=== PATIENT | female | born 1960 | race African-American/Black ===

== ENCOUNTER 2023-07-30 11:57 | Emergency (ER) | payer OTHER ==
[2023-07-30 12:02] VITALS: BMI 24.0
[2023-07-30 13:08] LABS: BASO % 0.8 % (0-2.0); EOS % 1.8 % (0-4.5); HEMATOCRIT 38.5 % (32.4-45.2); HEMOGLOBIN 12.8 GM/dL (10.7-15.3); LYMPH % 28.8 % (8-40); MCH 31.2 pg (25.7-33.7); MCHC 33.4 g/dl (32.0-36.0); MEAN CELL VOLUME 93.4 fl (80-96); MEAN PLT VOLUME 9.9 fl (7.5-11.1); MONO % 9.6 % (3.8-10.2); PLATELET COUNT 249 10^3/uL (134-434); RBC 4.12 M/mm3 (3.60-5.2); RDW 13.1 % (11.6-15.6); WHITE BLOOD COUNT 6.9 K/mm3 (4.0-10.0)
[2023-07-30 13:44] LABS: POTASSIUM 5.1 mmol/L (3.5-5.1)
[2023-07-30 13:45] LABS: EPI CELLS 1 /uL (0-25.1); HYALINE CASTS 0 /uL (0-3.1); URINE APPEARANCE CLEAR; URINE BACTERIA 4 /uL (0-1359); URINE BILIRUBIN NEGATIVE (NEGATIVE); URINE COLOR YELLOW; URINE GLUCOSE (UA) NEGATIVE (NEGATIVE); URINE KETONE NEGATIVE (NEGATIVE); URINE LEUK ESTERASE NEGATIVE (NEGATIVE); URINE NITRITE NEGATIVE (NEGATIVE); URINE PROTEIN NEGATIVE (NEGATIVE); URINE RBC 13 /uL (0-23.9); URINE UROBILINOGEN 0.2 mg/dL (0.2-1.0); URINE WBC 0 /uL (0-25.8)
[2023-07-30 13:46] LABS: CALCIUM 8.9 mg/dL (8.5-10.1)
[2023-07-30 13:48] LABS: ALBUMIN 3.6 g/dl (3.4-5.0); BLOOD UREA NITROGEN 9.1 mg/dL (7-18)
[2023-07-30 13:50] LABS: CREATININE 0.8 mg/dL (0.55-1.3)
[2023-07-30 13:51] LABS: BILIRUBIN,TOTAL 0.3 mg/dL (0.2-1); TOT PROT 7.6 g/dl (6.4-8.2)
[2023-07-30 17:52] VITALS: BP 182/92; PULSE 73; RESP 15; TEMP 97.9
== END 2023-07-30 17:53 | disposition short-term general hospital (02) ==
LOC: JER 11:57
DX: N85.8 Other specified noninflammatory disorders of uterus (principal); N93.9 Abnormal uterine and vaginal bleeding, unspecified; Z20.822 Contact with and (suspected) exposure to COVID-19
CPT/HCPCS: 0241U-QW; 36415; 74177-TC; 76830-TC; 80053; 81003; 85025; 86850; 86900; 86901; 87086; 99285-25; Q9967

== ENCOUNTER 2024-07-18 17:05 | Emergency (ER) | payer MEDICARE, OTHER ==
[2024-07-18] MEDS: SODIUM CHLORIDE 1,000 ML IV STA (19:46)
[2024-07-18] MEDS ORDERED: ACETAMINOPHEN INJECTION 100 ML ONE (19:53)
[2024-07-18 19:54] LABS: ABSOLUTE IMMATURE GRANULOCYTES 0.01 x10^3/uL (0.0-0.031); BASOPHILS # 0.04 x10^3/uL (0.01-0.08); EOSINOPHILS # 0.06 x10^3/uL (0.04-0.36); HEMATOCRIT 39.6 % (34.1-44.9); HEMOGLOBIN 12.8 g/dL (11.2-15.7); MCHC 32.3 g/dl (32.2-35.5); MEAN CELL VOLUME 94.5 fl (79.4-94.8); MEAN PLT VOLUME 11.2 fl (9.4-12.3); MONOCYTE # 0.53 x10^3/uL (0.24-0.86); MONOCYTE % 8.9 % (4.7-12.5); PLATELET COUNT 258 x10^3/uL (182-369); RDW 12.3 % (12.4-16.4)
[2024-07-18 20:02] LABS: INR 1.06 (0.83-1.09); PROTHROMBIN TIME (PATIENT) 11.5 SEC (9.7-13.0)
[2024-07-18 20:05] LABS: ACTIVATED PTT 36.2 SECONDS (25.2-36.5)
[2024-07-18] MEDS: ACETAMINOPHEN 1000 MG/100 ML BAG IVPB ONE (20:24)
[2024-07-18 21:01] LABS: POTASSIUM 4.5 mmol/L (3.5-5.1)
[2024-07-18 21:03] LABS: CALCIUM 9.4 mg/dL (8.5-10.1)
[2024-07-18 21:04] LABS: ALBUMIN 3.7 g/dl (3.4-5.0); BLOOD UREA NITROGEN 9.2 mg/dL (7-18); MAGNESIUM 2.1 mg/dL (1.8-2.4)
[2024-07-18 21:07] LABS: CREATININE 0.7 mg/dL (0.55-1.3); PHOSPHOROUS 3.6 mg/dL (2.5-4.9)
[2024-07-18 21:08] LABS: BILIRUBIN,TOTAL 0.5 mg/dL (0.2-1); TOT PROT 7.5 g/dl (6.4-8.2)
[2024-07-18 21:30] VITALS: BP 142/76; PULSE 48; RESP 19; TEMP 97.4
== END 2024-07-18 21:44 | disposition home or self-care (01) ==
LOC: JER 17:05
PROC: 3E033NZ Introduction of Analgesics, Hypnotics, Sedatives into Peripheral Vein, Percutaneous Approach (ICD-10-PCS; principal; 2024-07-18)
PROC: 3E0337Z Introduction of Electrolytic and Water Balance Substance into Peripheral Vein, Percutaneous Approach (ICD-10-PCS; 2024-07-18)
DX: I10 Essential (primary) hypertension (principal); R51.9 Headache, unspecified
CPT/HCPCS: 0241U-QW; 36415; 70450-TC; 71045-TC-FY; 80053; 82550; 82553; 83605; 83735; 84100; 84443; 84484; 85025; 85610; 85730; 93005; 93010; 96361; 96374; 99285-25; J0131